=== PATIENT | male | born 1970 | race Caucasian/White ===

== ENCOUNTER 2022-11-05 06:48 | Inpatient (IN) | payer MEDICAID, MEDICARE, OTHER ==
[~2022-11-05] VITALS: Ht 170.2 cm; Wt 88.5 kg
[2022-11-05] MEDS ORDERED: SODIUM CHLORIDE 0.9% 1,000 ML IV ONE (07:15)
[2022-11-05 08:03] LABS: BASOPHILS % 1.4 % (0.0-2.0); EOSINOPHILS % 2.2 % (0.0-5.0); HEMATOCRIT. 23.3 % (42.0-52.0); LYMPHOCYTES % 14.2 % (20.0-50.0); MEAN CORPUSCULAR HEMOGLOBIN 27.8 pg (28.0-32.0); MEAN CORPUSCULAR VOLUME 92.7 fL (80.0-94.0); MEAN PLATELET VOLUME 8.5 fl (7.4-10.4); MONOCYTES % 6.9 % (2.0-8.0); NEUTROPHILS % 75.3 % (40.0-76.0); PLATELET 503 x1000/uL (130-400); RED BLOOD CELL COUNT 2.52 mill/uL (4.7-6.1); RED CELL DISTRIBUTION WIDTH 17.6 % (11.6-14.6)
[2022-11-05 08:06] LABS: CHLORIDE 112 mEq/L (98-107)
[2022-11-05] MEDS ORDERED: NOREPINEPHRINE 8 MG in DEXTROSE 5% WATER 250 ML IV ONE (08:30)
[2022-11-05] MEDS ORDERED: NOREPINEPHRINE 8MG/250ML PMX 250 ML IV ONE (08:30)
[2022-11-05 08:43] LABS: INR 1.2
[2022-11-05 09:02] LABS: ETHANOL BLOOD < 10 mg/dL
[2022-11-05] MEDS ORDERED: MORPHINE SULFATE 4 MG/ML CPJ (NOT FOR IM USE) IV ONE (09:30)
[2022-11-05] MEDS ORDERED: SODIUM BICARBONATE 8.4% 1 MEQ/ML 50ML SYR IV NR (10:30)
[2022-11-05] MEDS ORDERED: ALBUTEROL (0.083%) 2.5MG/3ML NEB HHN NR (10:30)
[2022-11-05] MEDS ORDERED: INSULIN REGULAR (HUMULIN R) 300UNITS/3ML VIAL IV NR (10:30)
[2022-11-05] MEDS ORDERED: METRONIDAZOLE 500 MG PREMIX 100 ML IV NR (10:45)
[2022-11-05] MEDS ORDERED: CEFTRIAXONE 1 G PREMIX 50 ML IV NR (10:45)
[2022-11-05] MEDS ORDERED: PANTOPRAZOLE 80 MG in SODIUM CHLORIDE 0.9% 100 ML IV SCH ×4 (11:00)
[2022-11-05] MEDS ORDERED: DOCUSATE SODIUM 100MG CAPSULE PO PRN (12:00)
[2022-11-05] MEDS ORDERED: CLONIDINE 0.1MG TABLET PO PRN (12:00)
[2022-11-05] MEDS ORDERED: GUAIFENESIN 200MG/10ML SUGAR FREE UDC PO PRN (12:00)
[2022-11-05] MEDS ORDERED: IPRATROPIUM/ALBUTEROL 0.5-3(2.5)MG/3ML NEB NEB PRN (12:00)
[2022-11-05] MEDS ORDERED: ACETAMINOPHEN 325MG TABLET PO PRN (12:00)
[2022-11-05] MEDS ORDERED: ONDANSETRON HCL 4MG/2ML INJ IV PRN (12:00)
[2022-11-05] MEDS ORDERED: MAGNESIUM/ALUMINUM HYDROXIDE/SIMETHICONE 30ML UDC PO PRN (12:00)
[2022-11-05] MEDS: SODIUM CHLORIDE 0.9% 1,000 ML IV SCH ×2 (12:44→18:40)
[2022-11-05] MEDS: PANTOPRAZOLE SODIUM 40 MG/VIAL IV SCH ×2 (12:44→21:00)
[2022-11-05] MEDS ORDERED: PHENYLEPHRINE 50 MG in DEXT 5% WATER 245 ML IV PRN ×2 (13:00→20:00)
[2022-11-05] MEDS: METOPROLOL TARTRATE 5MG/5ML VIAL IV NR ×2 (13:00→13:31)
[2022-11-05] MEDS ORDERED: NALOXONE HCL 0.4MG/ML VIAL IV PRN (13:15)
[2022-11-05] MEDS ORDERED: AMIODARONE HCL 50MG/ML 3ML VIAL IV ONE (13:15)
[2022-11-05] MEDS ORDERED: AMIODARONE HCL 900 MG in DEXT 5% WATER 482 ML IV PRN ×4 (14:00)
[2022-11-05] MEDS ORDERED: AMIODARONE HCL 150 MG in DEXT 5% WATER 100 ML IV SCH (14:00)
[2022-11-05] MEDS: INSULIN REGULAR (HUMULIN R) 300UNITS/3ML VIAL SUBCUT NR ×2 (14:25→19:58)
[2022-11-05] MEDS ORDERED: DEXTROSE 50% WATER 50ML SYRINGE IV PRN (15:30)
[2022-11-05] MEDS: PREDNISONE 5MG TABLET PO SCH (15:30)
[2022-11-05] MEDS: HYDROCODONE/ACETAMINOPHEN 5/325MG TABLET PO PRN (16:46)
[2022-11-05 16:50] LABS: TOTAL IRON BINDING CAPACITY 227 ug/dL (250-450)
[2022-11-05 16:56] LABS: FOLIC ACID (FOLATE) SERUM 7.2 ng/mL (>5.38)
[2022-11-05] MEDS ORDERED: INSULIN LISPRO 100 UNITS/ML SUBCUT SCH (18:20)
[2022-11-05] MEDS: BLOOD SUGAR DIAGNOSTIC STRIP TEST SCH ×2 (18:31→21:00)
[2022-11-05] MEDS ORDERED: TACROLIMUS 1MG CAPSULE PO SCH (21:00)
[2022-11-05] MEDS ORDERED: MYCOPHENOLATE MOFETIL 250MG CAPSULE PO SCH (21:00)
[2022-11-05 21:59] LABS: BG BASE EXCESS -17.4 mmol/L (-2.0-2.0); BG CARBOXYHEMOGLOBIN 0.2 % (0.5-1.5); BG DEOXYHEMOGLOBIN 2.3 % (0.0-5.0); BG FRACTION INSPIRED OXYGEN 40; BG HCO3 ACT 8.6 mmol/L (22.0-26.0); BG METHEMOGLOBIN 0.7 % (0.0-1.5); BG OXYGEN SATURATION 97.7 % (92.0-98.5); BG OXYHEMOGLOBIN 96.8 % (94.0-97.0); BG PCO2 21.5 mmHg (35.0-45.0); BG PH 7.222 (7.350-7.450); BG PO2 125.2 mmHg (75.0-100.0); BG SAMPLE SITE RIGHT BRACHIAL; BG TOTAL HEMOGLOBIN 7.1 g/dL (12.0-18.0); BG VENT MODE NASAL CANNULA
[2022-11-05] MEDS ORDERED: INSULIN GLARGINE 100 UNITS/ML SUBCUT SCH (22:00)
[2022-11-06] VITALS (58 sets, daily range): BP systolic 58–158; BP diastolic 35–110
[2022-11-06] MEDS: SODIUM CHLORIDE 0.9% 1,000 ML IV SCH (01:20)
[2022-11-06] MEDS: HYDROCODONE/ACETAMINOPHEN 5/325MG TABLET PO PRN ×2 (02:18→08:24)
[2022-11-06 03:25] LABS: INR 1.4; PROTHROMBIN TIME 14.2 sec (9.6-11.0)
[2022-11-06 03:35] LABS: MEAN CORPUSCULAR HEMOGLOBIN 30.3 pg (28.0-32.0); MEAN CORPUSCULAR VOLUME 94.7 fL (80.0-94.0); MEAN PLATELET VOLUME 8.1 fl (7.4-10.4); PLATELET 405 x1000/uL (130-400); RED CELL DISTRIBUTION WIDTH 17.1 % (11.6-14.6)
[2022-11-06 04:14] LABS: HEMATOCRIT. 18.9 % (42.0-52.0)
[2022-11-06 07:24] LABS: PLATELET ESTIMATE NORMAL
[2022-11-06] MEDS ORDERED: INSULIN REGULAR (HUMULIN R) 300UNITS/3ML VIAL IV PRN (08:15)
[2022-11-06] MEDS ORDERED: INSULIN REGULAR (DRIP) 100 UNITS in SODIUM CHLORIDE 0.9% 99 ML IV SCH (08:15)
[2022-11-06] MEDS ORDERED: DEXTROSE 50% WATER 50ML SYRINGE IV PRN ×3 (08:15→15:30)
[2022-11-06] MEDS: BLOOD SUGAR DIAGNOSTIC STRIP TEST SCH ×9 (08:27→19:12)
[2022-11-06] MEDS ORDERED: INSULIN REGULAR 100U/100ML PMX 100 ML IV SCH ×2 (09:00→16:00)
[2022-11-06 09:37] LABS: BG BASE EXCESS -14.3 mmol/L (-2.0-2.0); BG DEOXYHEMOGLOBIN 1.8 % (0.0-5.0); BG FRACTION INSPIRED OXYGEN 40; BG METHEMOGLOBIN 0.4 % (0.0-1.5); BG OXYGEN SATURATION 98.2 % (92.0-98.5); BG OXYHEMOGLOBIN 95.8 % (94.0-97.0); BG PCO2 23.8 mmHg (35.0-45.0); BG PH 7.284 (7.350-7.450); BG PO2 108.2 mmHg (75.0-100.0); BG SAMPLE SITE UAL; BG TOTAL HEMOGLOBIN 5.9 g/dL (12.0-18.0); BG VENT MODE NASAL CANNULA
[2022-11-06] MEDS ORDERED: FENTANYL CITRATE/PF 50MCG/ML 2ML VIAL ONE (11:40)
[2022-11-06] MEDS ORDERED: MIDAZOLAM HCL 5 MG/5 ML VIAL ONE (11:40)
[2022-11-06] MEDS ORDERED: SIMETHICONE 40 MG/0.6 ML 15ML ONE (11:40)
[2022-11-06] MEDS ORDERED: MIDAZOLAM HCL 5 MG/5 ML VIAL IV PRN (12:09)
[2022-11-06] MEDS ORDERED: LIDOCAINE HCL 1% 30ML VIAL (10MG/ML) ONE (12:34)
[2022-11-06] MEDS: SODIUM CHLORIDE 0.45% 1,000 ML IV SCH ×3 (13:00→21:16)
[2022-11-06] MEDS: PREDNISONE 5MG TABLET PO SCH (14:35)
[2022-11-06] MEDS: MYCOPHENOLATE MOFETIL 500MG TABLET PO SCH ×2 (14:36→21:00)
[2022-11-06] MEDS: PANTOPRAZOLE SODIUM 40 MG/VIAL IV SCH ×2 (14:36→21:00)
[2022-11-06 17:27] LABS: PHOSPHORUS 1.4 mg/dL (2.5-4.9)
[2022-11-06] MEDS: SUCRALFATE 1 G/10 ML UDC PO SCH ×2 (17:41→21:00)
[2022-11-06] MEDS: METOCLOPRAMIDE HCL 10MG/2ML VIAL IV SCH ×2 (17:41→23:47)
[2022-11-06 19:28] LABS: CLARITY URINE CLEAR (CLEAR); COLOR URINE YELLOW (YELLOW); KETONES URINE NEGATIVE (NEGATIVE); LEUKOCYTE ESTERASE URINE NEGATIVE (NEGATIVE); NITRITE URINE NEGATIVE (NEGATIVE); OCCULT BLOOD URINE NEGATIVE (NEGATIVE); PH URINE 5.5 (4.5-8.0); PROTEIN URINE TRACE (NEGATIVE); SPECIFIC GRAVITY URINE 1.018 (1.005-1.030); UROBILINOGEN URINE 0.2 E.U./dL (0.2-1.0)
[2022-11-06] MEDS ORDERED: POTASSIUM-SODIUM PHOSPHATE POWDER PACKET PO NR (19:30)
[2022-11-06 19:54] LABS: *AMPHETAMINES SCREEN URINE NEGATIVE (NEGATIVE); *BARBITURATES SCREEN URINE NEGATIVE (NEGATIVE); *BENZODIAZEPINES SCREEN URINE PRESUMTIVE POSITIVE (NEGATIVE); *COCAINE SCREEN URINE NEGATIVE (NEGATIVE); CANNABINOID URINE SCREEN NEGATIVE (NEGATIVE); METHADONE URINE SCREEN NEGATIVE (NEGATIVE); OPIATES URINE SCREEN PRESUMTIVE POSITIVE (NEGATIVE); PHENCYCLIDINE URINE SCREEN NEGATIVE (NEGATIVE)
[2022-11-06] MEDS ORDERED: MAGNESIUM 2 G PREMIX 50 ML IV NR (21:00)
[2022-11-06] MEDS: INSULIN LISPRO 100 UNITS/ML SUBCUT SCH (21:00)
[2022-11-06] MEDS: TACROLIMUS 1MG CAPSULE PO SCH (21:01)
[2022-11-06] MEDS: INSULIN GLARGINE 100 UNITS/ML SUBCUT SCH (22:39)
[2022-11-07] VITALS (66 sets, daily range): BP systolic 91–132; BP diastolic 44–88
[2022-11-07 00:33] LABS: HEMATOCRIT 28.2 % (42.0-52.0); HEMOGLOBIN 9.4 g/dL (14.0-18.0)
[2022-11-07 00:36] LABS: CHLORIDE 121 mEq/L (98-107)
[2022-11-07] MEDS: ACETAMINOPHEN 325MG TABLET PO PRN ×2 (01:02→12:03)
[2022-11-07 05:24] LABS: BASOPHILS % 0.1 % (0.0-2.0); EOSINOPHILS % 0.3 % (0.0-5.0); HEMATOCRIT. 27.4 % (42.0-52.0); HEMOGLOBIN. 8.8 g/dL (14.0-18.0); LYMPHOCYTES % 8.6 % (20.0-50.0); MEAN CORPUSCULAR HEMOGLOBIN 30.2 pg (28.0-32.0); MEAN CORPUSCULAR VOLUME 94.1 fL (80.0-94.0); MEAN PLATELET VOLUME 8.3 fl (7.4-10.4); PLATELET 217 x1000/uL (130-400); RED BLOOD CELL COUNT 2.91 mill/uL (4.7-6.1)
[2022-11-07] MEDS: METOCLOPRAMIDE HCL 10MG/2ML VIAL IV SCH ×3 (05:29→16:58)
[2022-11-07] MEDS: SUCRALFATE 1 G/10 ML UDC PO SCH ×5 (05:29→20:35)
[2022-11-07] MEDS: INSULIN LISPRO 100 UNITS/ML SUBCUT SCH ×9 (05:32→20:37)
[2022-11-07 05:45] LABS: CHLORIDE 121 mEq/L (98-107)
[2022-11-07] MEDS: PREDNISONE 5MG TABLET PO SCH (08:25)
[2022-11-07] MEDS: TACROLIMUS 1MG CAPSULE PO SCH ×2 (08:25→20:37)
[2022-11-07] MEDS: PANTOPRAZOLE SODIUM 40 MG/VIAL IV SCH ×2 (08:25→20:36)
[2022-11-07] MEDS: AMIODARONE HCL 200 MG TABLET PO SCH ×2 (08:25→20:36)
[2022-11-07] MEDS: SODIUM CHLORIDE 0.45% 1,000 ML IV SCH ×2 (08:26→20:35)
[2022-11-07] MEDS: BLOOD SUGAR DIAGNOSTIC STRIP TEST SCH ×4 (12:05→20:37)
[2022-11-07] MEDS: HYDROCODONE/ACETAMINOPHEN 5/325MG TABLET PO PRN (14:22)
[2022-11-07] MEDS ORDERED: IPRATROPIUM BROMIDE (0.02%) 0.5MG/2.5ML NEB HHN PRN (17:30)
[2022-11-07] MEDS ORDERED: ALBUTEROL (0.083%) 2.5MG/3ML NEB HHN PRN (17:30)
[2022-11-07] MEDS: INSULIN GLARGINE 100 UNITS/ML SUBCUT SCH (21:07)
[2022-11-08] VITALS: BP 121/76
[2022-11-08] MEDS ORDERED: INSULIN GLARGINE 100 UNITS/ML SUBCUT SCH
[2022-11-08] MEDS: METOCLOPRAMIDE HCL 10MG/2ML VIAL IV SCH ×4 (01:37→18:00)
[2022-11-08 04:00] VITALS: BP 135/65
[2022-11-08] MEDS: SODIUM CHLORIDE 0.45% 1,000 ML IV SCH ×2 (05:34→17:54)
[2022-11-08] MEDS: BLOOD SUGAR DIAGNOSTIC STRIP TEST SCH ×3 (06:35→18:06)
[2022-11-08] MEDS: SUCRALFATE 1 G/10 ML UDC PO SCH ×3 (06:36→17:10)
[2022-11-08] MEDS: INSULIN LISPRO 100 UNITS/ML SUBCUT SCH ×6 (06:42→17:40)
[2022-11-08 07:09] LABS: BASOPHILS % 0.7 % (0.0-2.0); EOSINOPHILS % 2.2 % (0.0-5.0); HEMATOCRIT. 25.9 % (42.0-52.0); LYMPHOCYTES % 9.8 % (20.0-50.0); MEAN CORPUSCULAR HEMOGLOBIN 31.5 pg (28.0-32.0); MEAN CORPUSCULAR VOLUME 90.7 fL (80.0-94.0); NEUTROPHILS % 79.3 % (40.0-76.0); PLATELET 209 x1000/uL (130-400); RED BLOOD CELL COUNT 2.86 mill/uL (4.7-6.1); RED CELL DISTRIBUTION WIDTH 17.1 % (11.6-14.6)
[2022-11-08 07:11] LABS: CHLORIDE 116 mEq/L (98-107)
[2022-11-08 07:55] VITALS: BP 111/60
[2022-11-08] MEDS: PREDNISONE 5MG TABLET PO SCH (08:36)
[2022-11-08] MEDS: TACROLIMUS 1MG CAPSULE PO SCH (08:36)
[2022-11-08] MEDS: AMIODARONE HCL 200 MG TABLET PO SCH (08:36)
[2022-11-08] MEDS: PANTOPRAZOLE SODIUM 40 MG/VIAL IV SCH (09:00)
[2022-11-08 11:36] VITALS: BP 117/58
[2022-11-08 11:44] LABS: CLARITY URINE CLEAR (CLEAR); COLOR URINE YELLOW (YELLOW); KETONES URINE NEGATIVE (NEGATIVE); LEUKOCYTE ESTERASE URINE 2+ (NEGATIVE); NITRITE URINE NEGATIVE (NEGATIVE); OCCULT BLOOD URINE NEGATIVE (NEGATIVE); PROTEIN URINE 1+ (NEGATIVE); SPECIFIC GRAVITY URINE 1.019 (1.005-1.030); UROBILINOGEN URINE 0.2 E.U./dL (0.2-1.0)
[2022-11-08] MEDS ORDERED: CEFTRIAXONE 1 G PREMIX 50 ML IV SCH (12:45)
[2022-11-08] MEDS: ACETAMINOPHEN 325MG TABLET PO PRN (12:48)
[2022-11-08] MEDS ORDERED: CEFTRIAXONE 1,000 MG in DEXTROSE 5% WATER 50 ML IV SCH (14:00)
[2022-11-08 16:15] VITALS: BP 115/45
[2022-11-08 20:00] VITALS: BP 120/78
[2022-11-08] MEDS ORDERED: METOPROLOL TARTRATE 25MG TABLET PO SCH (21:00)
[2022-11-09] MEDS ORDERED: TACROLIMUS 1MG CAPSULE PO SCH ×2 (09:00→17:00)
== END 2022-11-08 21:53 | disposition short-term general hospital (02) | DRG 377 ==
LOC: ER 06:53 → MICUSO 10:42 → EDBEDREQ 10:46 → EDBEDREQTM 10:46 → SUPCPDRO 11:11 → MICUSO 11-06 11:57 → 8WST 11-07 17:09
PROVIDERS: ADMIT Internal Medicine; ATTEND Internal Medicine
PROC: 30233N1 Transfusion of Nonautologous Red Blood Cells into Peripheral Vein, Percutaneous Approach (ICD-10-PCS; 2022-11-05)
PROC: 0DJ08ZZ Inspection of Upper Intestinal Tract, Via Natural or Artificial Opening Endoscopic (ICD-10-PCS; principal; 2022-11-06)
PROC: 05H533Z Insertion of Infusion Device into Right Subclavian Vein, Percutaneous Approach (ICD-10-PCS; 2022-11-06)
PROC: B546ZZA Ultrasonography of Right Subclavian Vein, Guidance (ICD-10-PCS; 2022-11-06)
DX: K26.4 Chronic or unspecified duodenal ulcer with hemorrhage (principal); N18.6 End stage renal disease; R57.8 Other shock; E87.20 Acidosis, unspecified; E44.0 Moderate protein-calorie malnutrition; L88 Pyoderma gangrenosum; I12.0 Hypertensive chronic kidney disease with stage 5 chronic kidney disease or end stage renal disease; D62 Acute posthemorrhagic anemia; Z94.0 Kidney transplant status; E87.5 Hyperkalemia; Z20.822 Contact with and (suspected) exposure to COVID-19; I48.91 Unspecified atrial fibrillation; D50.9 Iron deficiency anemia, unspecified; E11.22 Type 2 diabetes mellitus with diabetic chronic kidney disease; E11.65 Type 2 diabetes mellitus with hyperglycemia; E11.43 Type 2 diabetes mellitus with diabetic autonomic (poly)neuropathy; K31.84 Gastroparesis; Z68.30 Body mass index [BMI] 30.0-30.9, adult; Z99.2 Dependence on renal dialysis; Z90.49 Acquired absence of other specified parts of digestive tract; Z79.4 Long term (current) use of insulin; Z79.899 Other long term (current) drug therapy; Z79.82 Long term (current) use of aspirin; Z79.01 Long term (current) use of anticoagulants; Z79.624 Long term (current) use of inhibitors of nucleotide synthesis
CPT/HCPCS: 36415; 36573; 36600; 71045; 80048; 80053; 80076; 80197; 80305; 80320; 81003; 82270; 82375; 82607; 82728; 82746; 82805; 82962; 83036; 83540; 83550; 83605; 83735; 84100; 84145; 84484; 85014; 85018; 85025; 85044; 86850; 86900; 86920; 87077; 87186; 87426; 93005; 93306; 93923; 94640; 99291; A6261; C1725; C9113; C9803; J0282; J0696; J1815; J2250; J2270; J2370; J2405; J2765; J3010; J3475; J3490; J7030; J7050; J7060; J7507; J7512; J7517; P9016; A4315; G0480